=== PATIENT | male | born 2005 | race Caucasian/White ===

== ENCOUNTER 2025-02-07 14:25 | Inpatient (IN) | payer BC ==
[~2025-02-07] VITALS: Ht 180.3 cm; Wt 81.9 kg
--- NOTE | 2025-02-07 14:45 | Physician Documentation ---
History of Present Illness ~ Chief Complaint: 5150 Stated Complaint: 5150 Time Seen by MD: 14:31 HPI Year old male presents to the ED with concerns over a potential psychotic break. He will country was contacted and advised that the patient has been having bizarre behavior. He pursue knife so he came go see his and protect her in [facility]. Patient is here in [place] for work. 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 Very forthcoming indicates he has never had any psychiatric illnesses and he is frustrated that he is here. He states that he does not want to hurt anybody but would if he had to He has never taken any psychiatric medications. States he has also never been on psychiatric hold. His family does not have any history of schizophrenia. He is alert oriented and really concerned about what is happening to him regarding a 5150 hold. Denies any SI intention Day of Onset: Feb 07, 2025 Review of Systems All Other Systems at this time: Reviewed and Negative ROS As stated above in the HPI, otherwise all systems are reviewed and negative. Physical Exam Physical Exam General: Alert, no apparent distress. HEENT: PERRL, EOMI, no injection, moist mucous membranes. . Neurologic: Oriented x4. Psychiatric: Anxious appearing, grandiose delusions Skin: Normal color, warm and dry. No edema, no ecchymosis. Progress Results/Orders Results/Orders Orders - TADEO MOLINA NP Med Rec (02/07/25 14:45) Close Observation Level (02/07/25 14:45) Covid19 Binax Poc Result Entry (02/07/25 14:45) Regular Diet (02/07/25 Dinner) Close Observation Level (02/07/25 16:52) Completed Orders - TADEO MOLINA NP Cbc/Diff (02/07/25 14:45) Urinalysis (02/07/25 14:45) Drug Screen, Urine (02/07/25 14:45) Ethanol (02/07/25 14:45) TSH (02/07/25 14:45) BMP (02/07/25 14:45) Haloperidol Lact. (Haldol) (02/07/25 16:55) Diazepam Inj (Valium Inj) (02/07/25 16:55) Diphenhydramine Inj (Benadryl Inj.) (02/07/25 16:55) Vital Signs 02/07/25 02/07/25 02/07/25 15:00 16:28 21:45 Temp 98.5 98.5 Pulse 67 67 Resp 16 B/P (MAP) 122/58 122/58 (79) Pulse Ox 96 100 O2 Flow Rate 0 0 Laboratory Tests Test 02/07/25 14:53 White Blood Count 6.2 Red Blood Count 4.82 Hemoglobin 14.5 Hematocrit 42.2 Mean Corpuscular Volume 87.6 Mean Corpuscular Hemoglobin 30.1 Mean Corpuscular Hemoglobin Concent 34.3 Red Cell Distribution Width 14.0 Platelet Count 234 Mean Platelet Volume 7.6 Neutrophils (%) (Auto) 61.6 Lymphocytes (%) (Auto) 23.4 Monocytes (%) (Auto) 10.8 Eosinophils (%) (Auto) 3.6 Basophils (%) (Auto) 0.6 Neutrophils # (Auto) 3.8 Lymphocytes # (Auto) 1.4 Monocytes # (Auto) 0.7 Eosinophils # (Auto) 0.2 Basophils # (Auto) 0.0 CBC Comment Urine Specimen Description Voided Urine Color Yellow Urine Clarity Clear Urine pH 6.0 Urine Specific [place] <=1.005 Urine Protein Negative Urine Glucose (UA) Negative Urine Ketones Negative Urine Occult Blood Negative Urine Nitrite Negative Urine Bilirubin Negative Urine Urobilinogen 0.2 Urine Leukocyte Esterase Negative Volume Urine Centrifuged 10 ml Urine Comment Sodium Level 140 Potassium Level 3.5 Chloride Level 105 Carbon Dioxide Level 25.9 Anion Gap 9 Blood Urea Nitrogen 19 H Creatinine 0.97 Estimated GFR/1.73 m2 > 90 BUN/Creatinine Ratio 19.6 Glucose Level 103 Calcium Level 8.6 Albumin 4.2 Thyroid Stimulating Hormone (TSH) 0.85 Chemistry Comments Urine Opiates Screen Negative Urine Methadone Screen Negative Urine Fentanyl Screen Negative Urine Barbiturates Screen Negative Urine Phencyclidine Screen Negative Urine Amphetamines Screen Negative Urine Benzodiazepines Screen Negative Urine Cocaine Screen Negative Urine Cannabinoids Screen Positive Drug Screen Comment Ethyl Alcohol Level < 10 SARS-CoV-2 Antigen (Rapid) Negative Medical Decision Making Additional information obtaine: old records Findings Patient's laboratory values are unremarkable. He is resting calmly in his bed at this time. Current medically clear him for evaluation by [facility] Differential Dx:Considerations: Include: Alcohol abuse, Anxiety, Bipolar disorder, Conversion disorder, Depression, Encephaloathy, Homicidal, Panic disorder, Personality disorder, Schizophrenia, Substance abuse, Suicidal, Other Departure Impression: Primary Impression: Psychosis Additional Instructions: Transfer orders for [facility]: At this time there is no evidence of an emergent medical condition that would preclude (admission/transfer) to a psychiatric unit via [facility] protocol for further psychiatric, as well as medical evaluation and treatment. At this time I have no reason to believe that transfer via [facility] protocol would have serious medical compromise in the patient's health. Referrals: NO PRIMARY CARE PROVIDER (PCP) Signature Scribe Signature: rt Attestation: Scribed for Tadeo Molina Np by Tadeo Jerome NP . 02/07/25 22:54 TADEO MOLINA NP Feb 07, 2025 14:45
[2025-02-07 15:01] LABS: MEAN PLATELET VOLUME 7.6 FL (7.4-10.4); RED CELL DISTRIBUTION WIDTH 14.0 % (11.5-14.5)
[2025-02-07 15:31] LABS: CREATININE 0.97 MG/DL (0.60-1.10); TOTAL CARBON DIOXIDE 25.9 MMOL/L (24-32); eGFR > 90 ML/MIN
[2025-02-07 15:47] LABS: ETHANOL < 10 MG/DL (<10)
[2025-02-07] MEDS: diazepam inj 5 MG/ML inj. IM ONE (16:55)
[2025-02-07] MEDS: haloperidol lactate 5mg/ml inj IM ONE (16:55)
[2025-02-07 17:12] LABS: LEUKOCYTE ESTERASE ,URINE NEGATIVE (Neg); NITRITES, URINE NEGATIVE (Neg); OCCULT BLOOD,URINE NEGATIVE (Neg)
[2025-02-07 17:16] LABS: UA COLLECTION TYPE VOIDED
[2025-02-07 17:35] LABS: URINE AMPHETAMINE SCREEN NEGATIVE (Neg); URINE BARBITUATE SCREEN NEGATIVE (Neg); URINE BENZODIAZEPINES SCREEN NEGATIVE (Neg); URINE CANNABINOID SCREEN POSITIVE (Neg); URINE COCAINE SCREEN NEGATIVE (Neg); URINE METHADONE SCREEN NEGATIVE (Neg); URINE OPIATE SCREEN NEGATIVE (Neg); URINE PHENCYCLIDINE SCREEN NEGATIVE (Neg)
[2025-02-08 23:45] VITALS: RESP 18; O2SAT 99
[2025-02-09] MEDS ORDERED: magnesium hydroxide 30ml (MOM) UD suspension PO PRN (06:00)
[2025-02-09] MEDS ORDERED: loperamide 2mg capsule PO PRN (06:00)
[2025-02-09] MEDS ORDERED: mag hydrox/Alum hydrox/simeth 30ml oral suspension PO PRN (06:00)
[2025-02-09 07:00] VITALS: RESP 18; O2SAT 99
[2025-02-09 08:20] VITALS: BP 104/65; PULSE 67; RESP 16; TEMP 97.4; O2SAT 99
--- NOTE | 2025-02-09 08:54 | HISTORY AND PHYSICAL ---
History of Present Illness History of Present Illness Admission date: 02/08 Status: 5150 CC: "I want to get on with my journey" HPI: Admitted on 5150 for danger of self, friends called 911 after he was exhibiting bizarre behavior, grandiose delusions, hyper adventism believes he is a messiah, erratic behavior, unpredictable, bought a knife with the stated rational "I need to protect my family". Family reported that he has been experimenting with substances, including MDMA cocaine psilocybin THC and the past six months, his behavior has grown more concerning. Has shared that he has marina that are "beyond human capacity" and perceive himself to beat the Messiah. Wes ed that he would jump off a 20 foot ledge to prove that he has superpowers. Other behavior changes in the last six months, including dropping out of college, cutting your friendships that he perceived to be "evil", states he was "spiritually " woman on the same day he met her at a festival. Labile Mood- distressed about being on the unit. 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 He went from a 4.0 GPA in college to dropping out, for the past three months has been attending multiple 2 day raves. There was a rave in [facility] - January 19 and states he hasn't been the same since. He brought a homeless women who was overdosing home with him because he thought he was saving the women's life. He talked to his dad on the phone- felt like "superman, spiderman, like dianne beck from the movie limitless, states he feels like he is the messiah" States that he needs to save lives because "god is telling him to" or other people will . This past Wednesday he was at a rave in [place]- and went through with a spiritual marriage with a stranger. His father reported that the women has a restraining order against him. 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 Father denies mental health history- no hx of depresiosn, anxiety, issues with appetite, learning. Father can recall that since the divorce he would push to spend time at a friends home instead sleeping at his father's home. Father can recall a time as a teenager that he used melatonin to help fall asleep. Talked to Friend [place]: "he is in a crazy head space" reports that he is in an unstable mental state because he thinks he has as , has a degree of euphoria. Today on Assessment: "I've always been in a adventism man" states it really hit him this summer, states he was very depressed last year and then this past spring he had an improvement in his mood after spending him with his friends. Two weeks ago at a festival called "[employer]" and [facility]- States he felt the presence of god. States he has never had the feeling of "knowing god" until this time. Then at a festival at [facility] () - states he a women named Nia- a few days later he flew to [place] for work. He states his co-workers were so "dumb founded" by what had happened that his friends assumed he was crazy. States he feels like he has no mental health symptoms. States he has felt happ ier here on the inpatient unit than he did last year when he was acutely depressed. States he has no negative thoughts. Endorses of depression though out his life, states initial depressed mood was age 13 when his parents , then when his brother fell off a roof and almost he experienced an empty sad mood- states those around him wouldn't have been able to tell. States that life is "too good not to be true" "I'm living the dream" "I can feel so much good energy". States his goals are return to [employer], then move down to [place] short term, then build a strong financial grounding, then go on [facility] to [place]- dis cussed that his uncle went to [place] "to build structure for these kids" states that on the unit he has been very supportive to the other patients, "basically scale up my personal brand through [employer] to build funds" When asked what he might be missing (in terms of why his friends brought him to the emergency department) he stated, "I don't know". "maybe some subconscious jealously". His friend is in supportive of taking his brain meds. Review of Psychiatric Symptoms: Mood: Euphoric- hopeful Suicide/self-harm: denies Sleep: 5 hours Appetite: denies Energy: "energized" Anxiety: low Irritability: denies Homicidal/Anger: denies Hallucinations/Paranoia: denies Trauma symptoms: denies Symptoms related to substance withdrawal: denies - Psychiatric History Age of initial treatment: when his parents - age 12 for several years Outpatient: denies Inpatient: denies Historical Diagnoses (w/year): denies Access to firearms: denies Hx of suicide attempts: denies Hx of self-harm: denies Hx of violence: a few altercations in the past few months- while in [place] (states this is a recent change in behavior) Legal hx: denies Historical Psych Medications: none Substance Use History Over the counter medications: denies Caffeine: less than daily Nicotine: a few zyns, occasional rare cigarette Alcohol: endorses use since adolescence, "I drink casually" 2-3 nights a week 3- 4 beverages Cannabis: Live resin, 3-4 days a week, estimates a gram of flower per week, Utox positive for cannabis Stimulants: per friends experimented with cocaine Opioids: denies Hx of IVDU: denies Other (Inhalants, Hypnotics, Hallucinogens, Rx): reportedly for the past two years marijuana, mushrooms (estimates a dozen time in the last two years), LSD estimates a total of three times total, MDMA estimates a total of three times DUI: denies treatment/rehab hx: denies Gambling: deneis No known hx of IVDU No known hx of meeting criteria for a substance use disorder Social history Born and raised in [place], played sports, 4.0 GPA, really social, parents when he was an adolescent. Younger brother- age 19 (ADHD). No issues with development. Was going to [employer] for College- then after his first year he transitioned back to the [employer]. 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 Family History Mental Illness: no known history of schizophrenia, possible aunt with bipolar Alcohol/other drug use: denies Suicide completions: denies Current Environment Living Situation: with roommates in [employer] [place] Relationships: supportive friends and family Spiritual: Confucianist Hobbies/ Other interests: outdoors, athletic, basketball, spending time with friends. 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 Income/rent/concerns about paying bills or feeding family: denies Hx: denies Mental Status Evaluation General Appearance: Casually dressed Eye contact: consistent with social norms Demeanor: cooperative, pleasant Orientation: to person, place, time, situation Speech: Appropriate rate/rhythm/volume Psychomotor Activity: within normal range Abnormal Body Movements: none observed Mood: euphoric Affect: Full range Suicidality: denies suicidal ideation Homicidally: denies Thought content: hyper religiosity Thought process: goal-directed Thought perceptions: no perceptual disorder noted Memory: appears intact Attention: appear attentive Insight: poor Judgment: limited - - Current Medical Problems: Medical History Cardiac HX: Denies TBI Hx: denies Seizure Hx: denies JEROME Hx: denies - - Diagnoses Hallucinogenic induced psychotic disorder - Assessment Based on initial evaluation, including interview and history obtained today, patient 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 Will start risperidone to address psychotic symptoms and mood changes. Discussed that sustained sobriety from drugs is essential to fci symptom improvement. - Safety risk: low risk of imminent self-harm, low risk of externalized violent behaviors Plan Start risperidone 1 mg po BID for psychotic and manic symptoms Continue Q15 min checks Continue Groups/Milieu Engagement Discharge Plan: to home with scheduled follow ups for outpatient therapy and medication management Access to firearms: Spent approximately 60 minutes reviewing records and test results, assessing and treatment planning, completing care coordination and documenting the encounter. Discussed risks, including possible adverse effects, and benefits of treatment recommendations including no treatment. Voice recognition software may have been used to dictate this note. There may be errors due to use of such software. Reporting of serious errors is appreciated. Allergies: Coded Allergies: No Known Allergies (Unverified , 02/08/25) Past Family History Patient History: FH: breast cancer GRANDFATHER OR GRANDMOTHER, Name: Maternal Grandfater FH: heart attack GRANDFATHER OR GRANDMOTHER, Name: Maternal Grandfater FH: obesity GRANDFATHER OR GRANDMOTHER, Name: Maternal Grandfater FHx: diabetes mellitus GRANDFATHER OR GRANDMOTHER, Name: Maternal Grandfater GRANDFATHER OR GRANDMOTHER, Name: Paternal Grandmother, Assessment/Plan Problems/Diagnosis: (1) Unspecified psychosis CODING VISIT-PSYCHIATRY Date of Service: Feb 09, 2025 Billing Provider: STEPHANE AMARO DNP Psych Common Visit Codes: [id number] DIAG EVAL W/MED SRVCS STEPHANE AMARO DNP Feb 09, 2025 08:54
--- NOTE | 2025-02-09 10:34 | ELECTROCARDIOGRAPH REPORT ---
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 TYRONE Garcia Measurements Intervals [place] Rate: 58 P: 37 WY: 128 QRS: 98 QRSD: 104 T: 34 QT: 416 QTc: 409 Interpretive Statements Sinus arrhythmia Borderline right axis deviation ST elev, probable normal early repol pattern Electronically Signed On 02-09-2025 12:58:[address] TYRONE Garcia Please click the below link to view image of tracing.
[2025-02-09] MEDS: NICOTINE POLACRILEX 2 MG LOZENGE BC PRN (10:39)
--- NOTE | 2025-02-09 13:41 | HISTORY AND PHYSICAL ---
History & Physical Providers to CC ~ History of Present Illness Reason for Admit\Complaint: Idealistic ideation, possible psychosis History of Present Illness This is the hospitalist history and physical exam on patients hospitalized at [facility] psychiatric quiles/ [facility]. The patient is alert and oriented x4 appears to have insight on the events that transpired however appears to have made some rash decisions including having a marriage ceremony (not legal) with a woman he met at a music festival. The patient appears to have found a ruben. The patient does endorse buying a knife however he said he is a young man he wanted to protect himself and that other coworkers he works with a could use a knife as well to protect themselves. The patient made good eye contact and appears very logical in his thought process currently during my evaluation. Allergies: Coded Allergies: No Known Allergies (Unverified , 02/08/25) Past Medical History Past Medical History No chronic health conditions Past Surgical History Surgical History Comment No prior surgeries Family History Family History: FH: breast cancer GRANDFATHER OR GRANDMOTHER, Name: Maternal Grandfater FH: heart attack GRANDFATHER OR GRANDMOTHER, Name: Maternal Grandfater FH: obesity GRANDFATHER OR GRANDMOTHER, Name: Maternal Grandfater FHx: diabetes mellitus GRANDFATHER OR GRANDMOTHER, Name: Maternal Grandfater GRANDFATHER OR GRANDMOTHER, Name: Paternal Grandmother, Past Social History Social History Comment Rarely smokes cigarettes when socializing, occasionally drinks alcohol, smokes cannabis a few times a week, endorses history of taking source has been mushrooms and LSD- denies any stimulant use including cocaine or methamphetamine. ROS ROS Except for positives in the HPI the rest of the 14 point review systems is negative Exam Vitals: Vital Signs Date Time Temp Pulse Resp B/P (MAP) Pulse Ox O2 Delivery O2 Flow Rate FiO2 02/09/25 08:20 97.4 67 16 104/65 (78) 99 Room Air 02/08/25 21:00 0 General: Gen. No acute distress alert and oriented 4 Lungs clear to ascultation bilaterally, no wheezes rales or rhonchi appreciated Heart normal sinus rhythm no murmurs rubs or clicks noted Abdomen soft nontender bowel sounds are normoactive Lower extremities no clubbing cyanosis, nor edema appreciated bilaterally Diagnostic Data Last Recorded Lab Results: 02/07/25 1453 02/07/25 1453 Additional Plan # idealistic ideation # possible psychoses # hallucinogenic experimentation Psychiatric provider is following No acute or chronic medical concerns or conditions endorsed by the patient nor nursing staff The hospitalist service will continue to follow the patient while hospitalized at [facility] for behavioral health. Date of Service: Feb 09, 2025 Billing Provider: JUAN CARLOS CRUMP DO Common Visit Codes: [id number] INP/OBS CARE (LOW) JUAN CARLOS CRUMP DO Feb 09, 2025 13:41
[2025-02-09 19:00] VITALS: RESP 16; O2SAT 99
[2025-02-09 20:00] VITALS: BP 130/61; PULSE 71; RESP 16; TEMP 98.6; O2SAT 99
[2025-02-10 07:59] VITALS: RESP 18; O2SAT 100
[2025-02-10 08:00] VITALS: BP 100/52; PULSE 68; RESP 16; TEMP 97.6; O2SAT 100
[2025-02-10 09:08] LABS: HIV ANTIBODY 1&2 RAPID NON-REACTIVE (Neg)
[2025-02-10 09:37] LABS: CHOL/HDL RATIO 2.5 (0.00-4.99); CREATININE 1.24 MG/DL (0.60-1.10); LDL CHOLESTEROL 81 MG/DL (50-100); TOTAL CARBON DIOXIDE 30.1 MMOL/L (24-32); eCRCL 101 ML/MIN; eGFR 74 ML/MIN
[2025-02-10 19:00] VITALS: RESP 16; O2SAT 99
[2025-02-10 20:00] VITALS: BP 123/71; PULSE 96; RESP 16; TEMP 98.5; O2SAT 98
--- NOTE | 2025-02-10 20:40 | PROGRESS NOTE ---
Progress Note Dictate Providers to CC ~ Progress Note: Admission date: 02/08 Status: 5150 CC: "I want to get on with my journey" HPI: Admitted on 5150 for danger of self, friends called 911 after he was exhibiting bizarre behavior, grandiose delusions, hyper pentecostalism believes he is a messiah, erratic behavior, unpredictable, bought a knife with the stated rational "I need to protect my family". Family reported that he has been experimenting with substances, including MDMA cocaine psilocybin THC and the past six months, his behavior has grown more concerning. 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 Father denies patient has a mental health history- no hx of depresiosn, anxiety, issues with appetite, learning. Father can recall that since the divorce he would push to spend time at a friends home instead sleeping at his father's home. Father can recall a time as a teenager that he used melatonin to help fall asleep. Talked to Friend [place]: "he is in a crazy head space" reports that he is in an unstable mental state because he thinks he has as , has a degree of euphoria. No prior psychiatric history. Substance Use History: Nicotine: a few zyns, occasional rare cigarette Alcohol: endorses use since adolescence, "I drink casually" 2-3 nights a week 3- 4 beverages Cannabis: Live resin, 3-4 days a week, estimates a gram of flower per week, Utox positive for cannabis, regular marijuana use since sophomore in high school- estimated age [age]. Stimulants: per friends experimented with cocaine Other (Inhalants, Hypnotics, Hallucinogens, Rx): reportedly for the past two years marijuana, mushrooms (estimates a dozen time in the last two years), LSD estimates a total of three times total, MDMA estimates a total of three times No known hx of IVDU Today on Assessment: Been reflecting with his friends on their concerns. Talked to father Carlyle later in the day: still delusional- still thinks he is and will go be with his , has been bringing up how he wants to be like franc arndt in fight club. "he is not right" concerned about him being discharged on Wednesday. Patient has been telling father "fantastical things" - like his goal to be a samurai (not in reality). Father states he is very worried that he will discontinue the medication after discharge. He told his father that he plans on continuing his marijuana use. He told his father that the only person who understands him is a friend who is a heavy drug user in [place]. He describes his friend as the "alchemist" and in relation, himself "Cyrus the Cantu". 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 States that the patient has maintained a mentality that he is invincible. Talked to Mother: she states its "very scary" to think of him being "out on the street". States that the patient broke into an ex girl friends home this past spring. Mother shared that the psychotic symptoms started this past spring. Mother correlates it with him not wanting to return to college. He called his mother at 4 am in the morning last week. Mother states he has expressed significant mood lability. Mother reported that the women put a restraining order against him- the women he "" two weekends ago. Review of Psychiatric Symptoms: Mood: states today he feels very emotional Suicide/self-harm: denies Sleep: 5 hours Appetite: denies Energy: "energized" Anxiety: low Irritability: denies Homicidal/Anger: denies Hallucinations/Paranoia: denies Trauma symptoms: denies Symptoms related to substance withdrawal: denies Mental Status Evaluation General Appearance: Casually dressed Eye contact: consistent with social norms Demeanor: cooperative, pleasant Orientation: to person, place, time, situation Speech: Appropriate rate/rhythm/volume Psychomotor Activity: within normal range Abnormal Body Movements: none observed Mood: euphoric Affect: Full range Suicidality: denies suicidal ideation Homicidally: denies Thought content: hyper religiosity Thought process: goal-directed Thought perceptions: no perceptual disorder noted Memory: appears intact Attention: appear attentive Insight: poor Judgment: limited Current Medical Problems: none noted Medical History Cardiac HX: Denies TBI Hx: denies Seizure Hx: denies JEROME Hx: denies 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 Will start risperidone to address psychotic symptoms and mood changes. 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 - Safety risk: low risk of imminent self-harm, low risk of externalized violent behaviors Plan Increase risperidone to 3 mg po QHS for psychotic and manic symptoms Continue Q15 min checks Continue Groups/Milieu Engagement Discharge Plan: to home with scheduled follow ups for outpatient therapy and medication management Access to firearms: Spent approximately 60 minutes reviewing records and test results, assessing and treatment planning, completing care coordination and documenting the encounter. Discussed risks, including possible adverse effects, and benefits of treatment recommendations including no treatment. Voice recognition software may have been used to dictate this note. There may be errors due to use of such software. Reporting of serious errors is appreciated. Antibiotic Ordered?: No Objective Vitals Vital Signs Date Time Temp Pulse Resp B/P (MAP) Pulse Ox O2 Delivery O2 Flow Rate FiO2 02/10/25 08:00 97.6 68 16 100/52 (68) 100 Room Air 02/08/25 21:00 0 Lab Results: 02/07/25 1453 02/10/25 0816 Problem\\Assessment\\Plan Problems/Diagnosis: (1) Unspecified psychosis CODING VISIT-PSYCHIATRY Date of Service: Feb 10, 2025 Billing Provider: STEPHANE AMARO DNP Psych Common Visit Codes: [id number] INP/OBS CARE(High) STEPHANE AMARO DNP Feb 10, 2025 20:40
[2025-02-11 07:00] VITALS: RESP 18; O2SAT 98
[2025-02-11 08:00] VITALS: BP 106/83; PULSE 69; RESP 16; TEMP 97.1; O2SAT 98
--- NOTE | 2025-02-11 17:56 | PROGRESS NOTE- Residence ---
Progress Note - Resident Providers to CC Resident Creating Document: AMBER BETH, GI CC: MARCO ARENAS MD ~ Antibiotic Timeout Antibiotic Ordered?: No Subjective Patient was seen and examined at bedside in the Mental Health Care unit. Patient does not have any acute complaints or overnight events. Objective Vital Signs Date Time Temp Pulse Resp B/P (MAP) Pulse Ox O2 Delivery O2 Flow Rate FiO2 02/11/25 08:00 97.1 69 16 106/83 (91) 98 02/11/25 07:00 Room Air 02/08/25 21:00 0 Result Diagram: 02/07/25 1453 02/10/25 0816 General: Alert, awake, oriented, not in acute distress HEENT: PERRLA, no icterus, pallor, lymphadenopathy, carotid bruit Respiratory system: Bilateral vesicular breath sounds heard, no adventitious breath sounds CVS: S1-S2 heard, no murmurs/rubs/gallop GI: Soft, nontender, no organomegaly, no guarding/rigidity, bowel sounds present Neuro: No focal neurological deficits present Extremities: No edema cyanosis clubbing/deformities Skin: Warm and dry Assessment Assessment A 19-year-old male has been admitted to the Mental Health Care unit in view of psychotic disorder with hallucinations. Hospitalist team is continuing for any medical complaints. Plan Plan Psychotic disorder with hallucinations Management per psychiatric team Prerenal PATO Encouraged fluid intake Marijuana use disorder director professional services consult Awaiting serology of RPR All labs reviewed Disposition hospitalist team we will continue to follow up with the patient Amber Beth MD Internal Medicine, PGY 2 Date of Service: Feb 11, 2025 Billing Provider: MARCO ARENAS MD Common Visit Codes: [id number] INP/OBS CARE(MOD) AMBER BETH, IG Feb 11, 2025 17:56 MARCO ARENAS MD Feb 12, 2025 06:59
[2025-02-11 19:00] VITALS: RESP 16; O2SAT 98
[2025-02-11 20:00] VITALS: BP 114/59; PULSE 66; RESP 16; TEMP 98.8; O2SAT 98
--- NOTE | 2025-02-11 20:35 | PROGRESS NOTE ---
Progress Note Dictate Providers to CC ~ Progress Note: Admission date: 02/08 Status: 5150 HPI: Admitted on 5150 for danger of self, friends called 911 after he was exhibiting bizarre behavior, grandiose delusions, hyper episcopal believes he is a messiah, erratic behavior, unpredictable, bought a knife with the stated rational "I need to protect my family". Family reported that he has been experimenting with substances, including MDMA cocaine psilocybin THC and the past six months, his behavior has grown more concerning. 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 Father denies patient has a mental health history- no hx of depression, anxiety, issues with appetite, learning. Father can recall that since the divorce he would push to spend time at a friends home instead sleeping at his father's home. Father can recall a time as a teenager that he used melatonin to help fall asleep. Talked to Friend [place]: "he is in a crazy head space" reports that he is in an unstable mental state because he thinks he has as , has a degree of euphoria. No prior psychiatric history. Substance Use History: Nicotine: a few zyns, occasional rare cigarette Alcohol: endorses use since adolescence, "I drink casually" 2-3 nights a week 3- 4 beverages Cannabis: Live resin, 3-4 days a week, estimates a gram of flower per week, Utox positive for cannabis, regular marijuana use since sophomore in high school- estimated age [age]. Stimulants: per friends experimented with cocaine Other (Inhalants, Hypnotics, Hallucinogens, Rx): reportedly for the past two years marijuana, mushrooms (estimates a dozen time in the last two years), LSD estimates a total of three times total, MDMA estimates a total of three times No known hx of IVDU Today on Assessment: Per father: still psychotic- is telling his father he feels better because he took the drugs, concern for danger to others because there is a stalking order against women- lurked for hours at her dorm, she called the security hotline. His plan is to discharge and travel to be with his women. Remains suspicious, blaming the provider for his current situation. Was agitated last night with father in visiting hours, punched his knee, tense clenching his teeth. Has told his father that when he discharges he will return to smoking weed- attributes marijuana to his intelligence. He has the means to buy drugs as well as a plane ticket to travel and visit the girl he has a restraining order against him. Per mom: patient has been using "peptides" he bought online to build muscles (could be another contributing factor). The girl he "" is scared that he will come after her. Per pt: States he has learned to be "more realistic instead of dreamy" plan: fly to [facility] then drive back to [place]. States it is not supper appealing to do a substance use treatment program. States this hospital experience has been the most "traumatic experience of his life" Denies peptide use, last injection was mid November "I do not live a life where I advertise my actions fully to anyone" "they don't know that much about me" States his mom's memory "isn't as good as it use to be" States he did "democrat a little too hard" Psychiatric Medications: Risperidone Side Effects: Denies No evidence of TD, EPS AIMs: 0 Review of Psychiatric Symptoms: Mood: states today he feels very emotional Suicide/self-harm: denies Sleep: 5 hours Appetite: denies Energy: "energized" Anxiety: low Irritability: denies Homicidal/Anger: denies Hallucinations/Paranoia: denies Trauma symptoms: denies Symptoms related to substance withdrawal: denies Mental Status Evaluation General Appearance: Casually dressed Eye contact: consistent with social norms Demeanor: cooperative, pleasant Orientation: to person, place, time, situation Speech: Appropriate rate/rhythm/volume Psychomotor Activity: within normal range Abnormal Body Movements: none observed Mood: euphoric Affect: Full range Suicidality: denies suicidal ideation Homicidally: denies Thought content: hyper religiosity Thought process: goal-directed Thought perceptions: no perceptual disorder noted Memory: appears intact Attention: appear attentive Insight: poor Judgment: limited Current Medical Problems: none noted Medical History Cardiac HX: Denies TBI Hx: denies Seizure Hx: denies JEROME Hx: denies Diagnoses Hallucinogenic induced psychotic disorder Marijuana use disorder Assessment for Hallucinogenic induced psychotic disorder. Will start risperidone to address psychotic symptoms and mood changes. 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 Remains acutely psychotic, has not be honest on assessment with this provider, remains guarded but acutely psychotic- fixed delusions, plans to discharge and travel to find his "" a women who has place a restraining order on him. He was not willing to discuss this safety concern, 5150 initiated for danger to others. Safety risk: low risk of imminent self-harm, low risk of externalized violent behaviors Plan Increase risperidone from 1 to 2 mg po QHS Continue Q15 min checks Continue Groups/Milieu Engagement Care coordination with family Discharge Plan: Recommend 30 day inpatient substance use treatment program to home with scheduled follow ups for outpatient therapy and medication management Spent approximately 60 minutes reviewing records and test results, assessing and treatment planning, completing care coordination and documenting the encounter. Discussed risks, including possible adverse effects, and benefits of treatment recommendations including no treatment. Voice recognition software may have been used to dictate this note. There may be errors due to use of such software. Reporting of serious errors is appreciated. Antibiotic Ordered?: No Objective Vitals Vital Signs Date Time Temp Pulse Resp B/P (MAP) Pulse Ox O2 Delivery O2 Flow Rate FiO2 02/11/25 18:52 Room Air 02/11/25 08:00 97.1 69 16 106/83 (91) 98 02/08/25 21:00 0 Lab Results: 02/07/25 1453 02/10/25 0816 Problem\\Assessment\\Plan Problems/Diagnosis: (1) Unspecified psychosis CODING VISIT-PSYCHIATRY Date of Service: Feb 11, 2025 Billing Provider: STEPHANE AMARO DNP Psych Common Visit Codes: [id number] INP/OBS CARE(High) STEPHANE AMARO DNP Feb 11, 2025 20:35
[2025-02-12 07:00] VITALS: RESP 16
[2025-02-12 08:00] VITALS: RESP 16
--- NOTE | 2025-02-12 16:23 | PROGRESS NOTE ---
Progress Note Dictate Providers to CC ~ Progress Note: Admission date: 02/08 Status: 5150 HPI: Admitted on 5150 for danger of self, friends called 911 after he was exhibiting bizarre behavior, grandiose delusions, hyper gnosticism believes he is a messiah, erratic behavior, unpredictable, bought a knife with the stated rational "I need to protect my family". Family reported that he has been experimenting with substances, including MDMA cocaine psilocybin THC and the past six months, his behavior has grown more concerning. 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 Father denies patient has a mental health history- no hx of depression, anxiety, issues with appetite, learning. Father can recall that since the divorce he would push to spend time at a friends home instead sleeping at his father's home. Father can recall a time as a teenager that he used melatonin to help fall asleep. Talked to Friend [place]: "he is in a crazy head space" reports that he is in an unstable mental state because he thinks he has as , has a degree of euphoria. No prior psychiatric history. Substance Use History: Nicotine: a few zyns, occasional rare cigarette Alcohol: endorses use since adolescence, "I drink casually" 2-3 nights a week 3- 4 beverages Cannabis: Live resin, 3-4 days a week, estimates a gram of flower per week, Utox positive for cannabis, regular marijuana use since sophomore in high school- estimated age [age]. Stimulants: per friends experimented with cocaine Other (Inhalants, Hypnotics, Hallucinogens, Rx): reportedly for the past two years marijuana, mushrooms (estimates a dozen time in the last two years), LSD estimates a total of three times total, MDMA estimates a total of three times No known hx of IVDU Today on Assessment: Per pt: States he has learned to be "more realistic instead of dreamy" plan: fly to [facility] then drive back to [place]. States it is not supper appealing to do a substance use treatment program. States this hospital experience has been the most "traumatic experience of his life" Denies peptide use, last injection was mid November "I do not live a life where I advertise my actions fully to anyone" "they don't know that much about me" States his mom's memory "isn't as good as it use to be" States he did "libertarian a little too hard" Psychiatric Medications: Risperidone Side Effects: Denies No evidence of TD, EPS AIMs: 0 Review of Psychiatric Symptoms: Mood: states today he feels very emotional Suicide/self-harm: denies Sleep: 5 hours Appetite: denies Energy: "energized" Anxiety: low Irritability: denies Homicidal/Anger: denies Hallucinations/Paranoia: denies Trauma symptoms: denies Symptoms related to substance withdrawal: denies Mental Status Evaluation General Appearance: Casually dressed Eye contact: consistent with social norms Demeanor: cooperative, pleasant Orientation: to person, place, time, situation Speech: Appropriate rate/rhythm/volume Psychomotor Activity: within normal range Abnormal Body Movements: none observed Mood: euphoric Affect: Full range Suicidality: denies suicidal ideation Homicidally: denies Thought content: hyper religiosity Thought process: goal-directed Thought perceptions: no perceptual disorder noted Memory: appears intact Attention: appear attentive Insight: poor Judgment: limited Current Medical Problems: none noted Medical History Cardiac HX: Denies TBI Hx: denies Seizure Hx: denies JEROME Hx: denies Diagnoses Hallucinogenic induced psychotic disorder Marijuana use disorder Assessment for Hallucinogenic induced psychotic disorder. Will start risperidone to address psychotic symptoms and mood changes. 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 Remains acutely psychotic, has not be honest on assessment with this provider, remains guarded but acutely psychotic- fixed delusions, plans to discharge and travel to find his "" a women who has place a restraining order on him. He was not willing to discuss this safety concern, 5150 initiated for danger to others. 02/12: guarded, less hyperactive, will continue current treatment plan Safety risk: low risk of imminent self-harm, low risk of externalized violent behaviors Plan Continue risperidone 2 mg po QHS Continue Q15 min checks Continue Groups/Milieu Engagement Care coordination with family Discharge Plan: Recommend 30 day inpatient substance use treatment program to home with scheduled follow ups for outpatient therapy and medication management Spent approximately 30 minutes reviewing records and test results, assessing and treatment planning, completing care coordination and documenting the encounter. Discussed risks, including possible adverse effects, and benefits of treatment recommendations including no treatment. Voice recognition software may have been used to dictate this note. There may be errors due to use of such software. Reporting of serious errors is appreciated. Antibiotic Ordered?: No Objective Vitals Vital Signs Date Time Temp Pulse Resp B/P (MAP) Pulse Ox O2 Delivery O2 Flow Rate FiO2 02/12/25 08:00 16 02/12/25 07:00 Room Air 0.0 02/11/25 20:00 98.8 66 114/59 (77) 98 Lab Results: 02/10/25 0816 Problem\\Assessment\\Plan Problems/Diagnosis: (1) Unspecified psychosis CODING VISIT-PSYCHIATRY Date of Service: Feb 12, 2025 Billing Provider: STEPHANE AMARO DNP Psych Common Visit Codes: [id number] INP/OBS CARE(Mod) STEPHANE AMARO DNP Feb 12, 2025 16:23
[2025-02-12 20:00] VITALS: BP 106/60; PULSE 79; RESP 16; TEMP 98.6; O2SAT 99
[2025-02-13 07:00] VITALS: BP 129/53; PULSE 85; RESP 12; TEMP 97.6; O2SAT 100
[2025-02-13] MEDS: RISPERIDONE 100 MG/0.28 ML SUSER.SYR SQ ONE (12:00)
--- NOTE | 2025-02-13 16:33 | PROGRESS NOTE- Residence ---
Progress Note - Resident Providers to CC Resident Creating Document: DOUG MAGUIRE, GI ~ Antibiotic Timeout Antibiotic Ordered?: No Subjective Patient is seen and examined at the bedside today. He was resting comfortably at his bedside today. Denied any new concerns or complaints. No acute overnight events were reported. Objective Vital Signs Date Time Temp Pulse Resp B/P (MAP) Pulse Ox O2 Delivery O2 Flow Rate FiO2 02/13/25 07:00 12 100 Room Air 0.0 02/13/25 07:00 97.6 85 129/53 (78) Result Diagram: 02/10/25 0816 General: Alert, awake, oriented, not in acute distress HEENT: PERRLA, no icterus, pallor, lymphadenopathy, carotid bruit Respiratory system: Bilateral vesicular breath sounds heard, no adventitious breath sounds CVS: S1-S2 heard, no murmurs/rubs/gallop GI: Soft, nontender, no organomegaly, no guarding/rigidity, bowel sounds present Neuro: No focal neurological deficits present Extremities: No edema cyanosis clubbing/deformities Skin: Warm and dry Assessment Assessment A 19-year-old male has been admitted to the Mental Health Care unit in view of psychotic disorder with hallucinations. Plan Plan Psychotic disorder with hallucinations Management per psychiatric team Prerenal PATO Encouraged fluid intake Marijuana use disorder career services director consult RVR-nonreactive; confirmatory test pending. Disposition: No acute medical condition. The hospitalist team we will continue to follow the patient during the course of his hospitalization. Doug Maguire MD Internal Medicine Resident, PGY-3 Date of Service: Feb 13, 2025 Billing Provider: JAY JAY BARBOZA MD, SURYA PRATIK, GI Feb 13, 2025 16:33
[2025-02-13 19:00] VITALS: RESP 18; O2SAT 98
[2025-02-13 20:00] VITALS: BP 120/53; PULSE 76; RESP 18; TEMP 97.4; O2SAT 98
--- NOTE | 2025-02-13 20:47 | PROGRESS NOTE ---
Progress Note Dictate Providers to CC ~ Progress Note: Admission date: 02/08 Status: 5150 HPI: Admitted on 5150 for danger of self, friends called 911 after he was exhibiting bizarre behavior, grandiose delusions, hyper buddhist believes he is a messiah, erratic behavior, unpredictable, bought a knife with the stated rational "I need to protect my family". Family reported that he has been experimenting with substances, including MDMA cocaine psilocybin THC and the past six months, his behavior has grown more concerning. 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 Father denies patient has a mental health history- no hx of depression, anxiety, issues with appetite, learning. Father can recall that since the divorce he would push to spend time at a friends home instead sleeping at his father's home. Father can recall a time as a teenager that he used melatonin to help fall asleep. Talked to Friend [place]: "he is in a crazy head space" reports that he is in an unstable mental state because he thinks he has as , has a degree of euphoria. No prior psychiatric history. Substance Use History: Nicotine: a few zyns, occasional rare cigarette Alcohol: endorses use since adolescence, "I drink casually" 2-3 nights a week 3- 4 beverages Cannabis: Live resin, 3-4 days a week, estimates a gram of flower per week, Utox positive for cannabis, regular marijuana use since sophomore in high school- estimated age [age]. Stimulants: per friends experimented with cocaine Other (Inhalants, Hypnotics, Hallucinogens, Rx): reportedly for the past two years marijuana, mushrooms (estimates a dozen time in the last two years), LSD estimates a total of three times total, MDMA estimates a total of three times No known hx of IVDU Today on Assessment: Per pt: States he has learned to be "more realistic instead of dreamy" plan: fly to [facility] then drive back to [place]. States it is not supper appealing to do a substance use treatment program. States this hospital experience has been the most "traumatic experience of his life" Denies peptide use, last injection was mid November "I do not live a life where I advertise my actions fully to anyone" "they don't know that much about me" States his mom's memory "isn't as good as it use to be" States he did "democrat a little too hard" Per father: he has peptides in his belongings on his person. Per father he victorino a picture in the group room of his /women stated explicitly to his father "magy Kramer". Psychiatric Medications: Risperidone Side Effects: Denies No evidence of TD, EPS AIMs: 0 Review of Psychiatric Symptoms: Mood: states today he feels very emotional Suicide/self-harm: denies Sleep: 3.25 hours Appetite: denies Energy: "feel fine" Anxiety: low Irritability: denies Homicidal/Anger: denies Hallucinations/Paranoia: denies Trauma symptoms: denies Symptoms related to substance withdrawal: denies Mental Status Evaluation General Appearance: Casually dressed Eye contact: consistent with social norms Demeanor: cooperative Orientation: to person, place, time, situation Speech: Appropriate rate/rhythm/volume Psychomotor Activity: within normal range Abnormal Body Movements: none observed Mood: labile Affect: Full range Suicidality: denies suicidal ideation Homicidally: denies Thought content: hyper religiosity Thought process: goal-directed Thought perceptions: no perceptual disorder noted Memory: appears intact Attention: appear attentive Insight: poor Judgment: limited Current Medical Problems: none noted Medical History Cardiac HX: Denies TBI Hx: denies Seizure Hx: denies JEROME Hx: denies Diagnoses Hallucinogenic induced psychotic disorder Marijuana use disorder Assessment for Hallucinogenic induced psychotic disorder. Will start risperidone to address psychotic symptoms and mood changes. Discussed that sustained sobriety from drugs is essential to mcc symptom improvement. Remains acutely psychotic, has not be honest on assessment with this provider, remains guarded but acutely psychotic- fixed delusions, plans to discharge and travel to find his "" a women who has place a restraining order on him. He was not willing to discuss this safety concern, 5150 initiated for danger to others. 02/13: guarded and superficial on assessment, accepting of plan to discharge to rehab, accepting of recommendation for CASAS Safety risk: low risk of imminent self-harm, low risk of externalized violent behaviors Plan Start CASAS UZEDY 100 mg SQ on 02/13/25 Discontinue PO risperidone PO QHS Continue Q15 min checks Continue Groups/Milieu Engagement Care coordination with family Discharge Plan: WED to inpatient substance use treatment program Spent approximately 30 minutes reviewing records and test results, assessing and treatment planning, completing care coordination and documenting the encounter. Discussed risks, including possible adverse effects, and benefits of treatment recommendations including no treatment. Voice recognition software may have been used to dictate this note. There may be errors due to use of such software. Reporting of serious errors is appreciated. Antibiotic Ordered?: No Objective Vitals Vital Signs Date Time Temp Pulse Resp B/P (MAP) Pulse Ox O2 Delivery O2 Flow Rate FiO2 02/13/25 07:00 12 100 Room Air 0.0 02/13/25 07:00 97.6 85 129/53 (78) Lab Results: 02/10/25 0816 Problem\\Assessment\\Plan Problems/Diagnosis: (1) Unspecified psychosis CODING VISIT-PSYCHIATRY Date of Service: Feb 13, 2025 Billing Provider: STEPHANE AMARO DNP Psych Common Visit Codes: [id number] INP/OBS CARE(High) STEPHANE AMARO DNP Feb 13, 2025 20:47
[2025-02-14 07:00] VITALS: RESP 12; O2SAT 100
[2025-02-14 08:34] VITALS: BP 111/42; PULSE 58; RESP 14; TEMP 97.9; O2SAT 98
--- NOTE | 2025-02-14 11:46 | DISCHARGE SUMMARY ---
Discharge Summary Providers to CC ~ Discharge Summary Admission Diagnosis: Psychosis NOS Discharge Diagnosis\\Comment: stable Operations\\Procedures: none Consultants: hospitalist Complications: none Condition on DC: Stable 2 or more antipsychotic used: No 2/more antipsychotic addressed: No Does Patient smoke: No Smoking education given.: No Discharge Summary: Admission date: 02/08 Status: 515 HPI: Admitted on 5150 for danger of self, friends called 911 after he was exhibiting bizarre behavior, grandiose delusions, hyper caodaism believes he is a messiah, erratic behavior, unpredictable, bought a knife with the stated rational "I need to protect my family". Family reported that he has been experimenting with substances, including MDMA cocaine psilocybin THC and the past six months, his behavior has grown more concerning. 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 Father denies patient has a mental health history- no hx of depression, anxiety, issues with appetite, learning. Father can recall that since the divorce he would push to spend time at a friends home instead sleeping at his father's home. Father can recall a time as a teenager that he used melatonin to help fall asleep. Talked to Friend [place]: "he is in a crazy head space" reports that he is in an unstable mental state because he thinks he has as , has a degree of euphoria. No prior psychiatric history. Substance Use History: Nicotine: a few zyns, occasional rare cigarette Alcohol: endorses use since adolescence, "I drink casually" 2-3 nights a week 3- 4 beverages Cannabis: Live resin, 3-4 days a week, estimates a gram of flower per week, Utox positive for cannabis, regular marijuana use since sophomore in high school- estimated age [age]. Stimulants: per friends experimented with cocaine Other (Inhalants, Hypnotics, Hallucinogens, Rx): reportedly for the past two years marijuana, mushrooms (estimates a dozen time in the last two years), LSD estimates a total of three times total, MDMA estimates a total of three times No known hx of IVDU Today on Assessment: Optimistic about discharge Psychiatric Medications: UZEDU CASAS Side Effects: Denies No evidence of TD, EPS AIMs: 0 Review of Psychiatric Symptoms: Mood: states today he feels very emotional Suicide/self-harm: denies Sleep:6 hours Appetite: denies Energy: "feel fine" Anxiety: low Irritability: denies Homicidal/Anger: denies Hallucinations/Paranoia: denies Trauma symptoms: denies Symptoms related to substance withdrawal: denies Mental Status Evaluation General Appearance: Casually dressed Eye contact: consistent with social norms Demeanor: cooperative Orientation: to person, place, time, situation Speech: Appropriate rate/rhythm/volume Psychomotor Activity: within normal range Abnormal Body Movements: none observed Mood: labile Affect: Full range Suicidality: denies suicidal ideation Homicidally: denies Thought content: hyper religiosity, delusional Thought process: goal-directed Thought perceptions: no perceptual disorder noted Memory: appears intact Attention: appear attentive Insight: fair Judgment: limited Current Medical Problems: none noted Medical History Cardiac HX: Denies TBI Hx: denies Seizure Hx: denies JEROME Hx: denies Discharge Diagnoses Hallucinogenic induced psychotic disorder Marijuana use disorder Discharge Assessment Admitted for Hallucinogenic induced psychotic disorder. Will start risperidone to address psychotic symptoms and mood changes. Discussed that sustained sobriety from drugs is essential to equipment monitor phototypesetting symptom improvement. Remains psychotic, remains guarded about fixed delusions, agreeable to accepting of plan to discharge to rehab, accepted CASAS UZEDY on 02/13. Safety risk: low risk of imminent self-harm, low risk of externalized violent behaviors Discharge Plan CASAS UZEDY 100 mg SQ on 02/13/25 With father to inpatient substance use treatment program in [place] Spent approximately 30 minutes reviewing records and test results, assessing and treatment planning, completing care coordination and documenting the encounter. Discussed risks, including possible adverse effects, and benefits of treatment recommendations including no treatment. Voice recognition software may have been used to dictate this note. There may be errors due to use of such software. Reporting of serious errors is appreciated. *Problems/Diagnosis: (1) Unspecified psychosis Total Time Spent on D/C: Up to 30 Minutes Counseling Services Smoking & Tobacco Cessation: N/A CODING VISIT-PSYCHIATRY Date of Service: Feb 14, 2025 Billing Provider: STEPHANE AMARO DNP Psych Common Visit Codes: [id number]/OBS DISCH DAY <30min STEPHANE AMARO DNP Feb 14, 2025 11:46
== END 2025-02-14 11:54 | disposition home or self-care (01) | DRG 885 ==
LOC: ER 14:26 → ADULT MH 02-08 13:00 → UNDOADMIN 02-08 13:00 → ADULT MH 02-08 21:22
PROVIDERS: ADMIT Psychiatry & Neurology Psychiatry; ATTEND Psychiatry & Neurology Psychiatry
PROC: GZHZZZZ Group Psychotherapy (ICD-10-PCS; principal; 2025-02-09)
DX: F29 Unspecified psychosis not due to a substance or known physiological condition (principal); N17.9 Acute kidney failure, unspecified; F16.959 Hallucinogen use, unspecified with hallucinogen-induced psychotic disorder, unspecified; F32.A Depression, unspecified; Z59.00 Homelessness unspecified; Z20.822 Contact with and (suspected) exposure to COVID-19; F24 Shared psychotic disorder; F12.90 Cannabis use, unspecified, uncomplicated; F41.9 Anxiety disorder, unspecified; Z79.899 Other long term (current) drug therapy
CPT/HCPCS: 36415; 80048; 80053; 80061; 80305; 80320; 81003; 82248; 83036; 84443; 85025; 86592; 86703; 87081; 87811; 93005; 99285